=== PATIENT | female | born 1995 | race African-American/Black ===

== ENCOUNTER 2017-10-03 12:51 | Emergency (ER) | payer MEDICAID, OTHER ==
[~2017-10-03] VITALS: Ht 154.9 cm; Wt 50.0 kg
[2017-10-03 12:54] VITALS: BP 121/70
[2017-10-03] MEDS ORDERED: ACETAMINOPHEN 500MG TABLET PO ONE (15:00)
[2017-10-03] MEDS ORDERED: VISCOUS LIDOCAINE 2% 15 ML UDC MM PRN (15:45)
== END 2017-10-03 15:56 | disposition home or self-care (01) ==
LOC: ER 13:14
DX: J02.9 Acute pharyngitis, unspecified (principal); F12.10 Cannabis abuse, uncomplicated; Z88.0 Allergy status to penicillin
CPT/HCPCS: 87070; 87430; 99283; 99284